=== PATIENT | female | born 1965 | race Caucasian/White ===

== ENCOUNTER → 2017-05-07 18:25 | Outpatient (CLI) | payer OTHER | END | disposition home or self-care (01) | LOC: D.MAMMO 16:15 | DX: Z12.31 Encounter for screening mammogram for malignant neoplasm of breast (principal) ==

== ENCOUNTER → 2017-05-11 07:21 | Outpatient (CLI) | payer OTHER | END | disposition home or self-care (01) | LOC: D.CT 04-26 13:30 | DX: R31.9 Hematuria, unspecified (principal) ==

== ENCOUNTER → 2017-06-20 19:01 | Outpatient (CLI) | payer OTHER | END | disposition home or self-care (01) | LOC: D.MAMMO 06-18 11:00 → D.US 06-18 13:00 → D.MAMMO 15:00 | DX: R92.8 Other abnormal and inconclusive findings on diagnostic imaging of breast (principal) ==

== ENCOUNTER 2018-08-25 08:00 | Outpatient (CLI) | payer OTHER | END 2018-08-25 09:00 | disposition home or self-care (01) | LOC: D.MAMMO 08:00 | PROVIDERS: ATTEND Clinical Nurse Specialist Adult Health | DX: Z12.31 Encounter for screening mammogram for malignant neoplasm of breast (principal) ==